=== PATIENT | female | born 1995 ===

== ENCOUNTER → 2020-04-01 11:29 | Outpatient (CLI) | payer BC, SELFPAY ==
[2020-04-01 15:02] LABS: Urine N gonorrhoeae NOT DETECTED
[2020-04-01 15:12] LABS: Urine Chlamydia NOT DETECTED
== END ==
PROVIDERS: Visit Provider Physician Assistant
DX: Z11.3 Encounter for screening for infections with a predominantly sexual mode of transmission (principal)
CPT/HCPCS: 87491; 87591